=== PATIENT | male | born 1965 | race Caucasian/White ===

== ENCOUNTER → 2016-10-26 | Outpatient (CLI) | payer OTHER ==
[2016-10-26 12:46] LABS: CHOLESTEROL/HDL RATIO 3.2; PROSTATE SPECIFIC ANTIGEN 0.895 ng/ml (0.000-4.000)
[2016-10-26 12:56] LABS: HEPATITIS B AB NEG
[2016-10-30 08:39] LABS: CHLAMYDIA TRACH RNA*** NOT DETECTED (NOT DETECTED); GC (NEIS GONORRHOEAE)RNA** NOT DETECTED (NOT DETECTED)
== END | disposition home or self-care (01) ==
LOC: C.LABBFT 08:41
PROVIDERS: ATTEND Internal Medicine
DX: Z72.51 High risk heterosexual behavior (principal); Z13.220 Encounter for screening for lipoid disorders; Z12.5 Encounter for screening for malignant neoplasm of prostate